=== PATIENT | male | born 1985 | race African-American/Black ===

== ENCOUNTER 2022-08-21 11:01 | Emergency (ER) | payer SELFPAY ==
[2022-08-21 11:11] VITALS: BP 123/67; PULSE 59; RESP 16; TEMP 36.6; O2SAT 99
--- NOTE | 2022-08-21 11:55 | ED.GENADULT ---
HPI - General Adult General Chief complaint: Unspecified Stated complaint: hiccups for 2 days Time Seen by Provider: 08/21/22 11:22 Source: patient Mode of arrival: ambulatory Limitations: no limitations History of Present Illness HPI narrative: This is a 36 year old male that presents to the ER for pick-ups ongoing over the last 2 days. Reports they have been constant. He only has a brief amount of time where they stop for maybe a couple of minutes. He has not had any previous trouble with this in the past. Denies any new medications or history of reflux. No recent surgeries. Denies fever, cough, abdominal pain or vomiting. Related Data Allergies Allergy/AdvReac Type Severity Reaction Status Date / Time No Known Allergies Allergy Verified 08/21/22 11:19 Review of Systems Review of Systems: CONSTITUTIONAL: Denies fever ENT: Denies congestion, sore throat RESPIRATORY: Denies dyspnea. GASTROINTESTINAL: Denies abdominal pain, nausea, vomiting All systems reviewed & are unremarkable except as noted in HPI and below PMFSH Past Medical History Medical History (Updated 08/21/22 @ 12:03 by Alayna Haji PA-C) No active medical problems Social History Social History (Updated 08/21/22 @ 12:03 by Alayna Haji PA-C) Smoking status: Never smoker Substance use: never Exam Narrative: GENERAL: Well-appearing, well-nourished, and in no acute distress. HEAD: Normocephalic, atraumatic. EYES: EOMI. ENT: Mucous membranes moist. Oropharynx without tonsillar hypertrophy exudate or other lesions. There is cerumen in the bilateral external auditory canals. No foreign bodies noted NECK: Supple. No adenopathy or masses CHEST: Clear to auscultation. No respiratory distress. No wheezes rales or rhonchi HEART: Regular rate and rhythm. No murmur heard. Normal peripheral pulses. ABDOMEN: Soft, nontender, nondistended, normal active bowel sounds. EXTREMITIES: Normal range of motion. No edema. SKIN: Warm, dry, no rash. NEURO: No focal deficits. Alert and oriented x3. PSYCH: Normal mood and affect Course Vital Signs Vital signs: Vital Signs Temperature 97.9 F 08/21/22 11:11 Pulse Rate 59 L 08/21/22 11:11 Respiratory Rate 16 08/21/22 11:11 Blood Pressure 123/67 08/21/22 11:11 Pulse Oximetry 99 08/21/22 11:11 Oxygen Delivery Room Air 08/21/22 11:11 Temperature 97.9 F 08/21/22 11:11 Pulse Rate 59 L 08/21/22 11:11 Respiratory Rate 16 08/21/22 11:11 Blood Pressure 123/67 08/21/22 11:11 Pulse Oximetry 99 08/21/22 11:11 Oxygen Delivery Room Air 08/21/22 11:11 Medical Decision Making MDM Narrative Medical decision making narrative: Patient presents to the emergency department for intractable hiccups noted over the last 2 days. No obvious source. His exam is benign. Will trial patient on a PPI to see if this helps. He was instructed he should then have follow-up with a primary provider. He was given warnings to return to the ER Vital Signs Vital Signs: Vital Signs Temperature 97.9 F 08/21/22 11:11 Pulse Rate 59 L 08/21/22 11:11 Respiratory Rate 16 08/21/22 11:11 Blood Pressure 123/67 08/21/22 11:11 Pulse Oximetry 99 08/21/22 11:11 Oxygen Delivery Room Air 08/21/22 11:11 Temperature 97.9 F 08/21/22 11:11 Pulse Rate 59 L 08/21/22 11:11 Respiratory Rate 16 08/21/22 11:11 Blood Pressure 123/67 08/21/22 11:11 Pulse Oximetry 99 08/21/22 11:11 Oxygen Delivery Room Air 08/21/22 11:11 Critical Care Time Critical Care Time Critical Care Time: No Discharge Plan Discharge Clinical Impression: Intractable hiccups Patient Disposition: Home, Self-Care Condition: Stable Instructions: Hiccups (ED) Additional Instructions: Return to the ER if you experience fever, chest pain, shortness of breath, abdominal pain with nausea and vomiting, you are unable to keep down liquids or solids, or any other symptoms that are concerning to
== END 2022-08-21 12:15 | disposition home or self-care (01) ==
PROVIDERS: Emergency Provider Physician Assistant
DX: R06.6 Hiccough (principal)
CPT/HCPCS: 99283